=== PATIENT | female | born 1965 | race Caucasian/White ===

== ENCOUNTER → 2019-02-28 | Day surgery (SDC) | payer OTHER ==
[~2019-02-28] MED LIST: CRESTOR10 MG PO; DIOVAN HCT PO; FENTANYL CITRATE/PF 100MCG/2 ML INJ ONE; HYOSCYAMINE 0.125 MG TAB ONE; MIDAZOLAM HCL 2 MG/2 ML VIAL ONE; MIRAPEX PO; PHENYLEPHRINE HCL 1% 10 MG/ML VIAL ONE; PROPOFOL IV EMULSION 10 MG/ML 50 ML VIAL ONE; SYNTHROID100 MCG PO; VASOPRESSIN INJ 20 UNIT/ML VIAL ONE
--- OUTSIDE RECORDS SUMMARY | 2019-02-28 08:31 | XMS REPORT ---
Author Author [facility] Address Unknown Phone Unavailable Care Team Providers Care Camp Coordinator Name Role Phone VALARIE OGLESBY Unavailable Unavailable Problems This patient has no known problems. Allergies, Adverse Reactions, Alerts This patient has no known allergies or adverse reactions. Medications This patient has no known medications. Results Test Description Test Time Test Comments Text Results Atomic Results Result Comments HEPTOBILIARY W PHARM [place] [address] Patient Name: TRACY PURDY MR #: [id number] : 1965 Age/Sex: 52/F Req #: [id number] Adm Physician: Ordered by: VALARIE OGLESBY MD Report #: [id number] Location: [place] Room/Bed: Procedure: [id number] SD/HEPTOBILIARY W PHARM Exam Date: Exam Time: REPORT STATUS: Signed Hepatobiliary Scan with Gallbladder Ejection Fraction Clinical information: 52F with progressively worsening chronic abdominal pain Technique: Following intravenous administration of 6.4 millicuries of Tc-99m mebrofenin, dynamic images of the abdomen in the anterior projection were obtained through 30 minutes. Sincalide (CCK analog) 2.0 micrograms was administered intravenously over 30 minutes with additional imaging for determination of gallbladder ejection fraction. Discussion: Perfusion of the liver is normal. Extraction of tracer by the liver parenchyma is normal. Tracer appears promptly within the biliary tract. The gallbladder begins to fill by 9 minutes post injection of tracer and fills adequately. Tracer is seen in the small bowel by 5 minutes. The gallbladder ejection fraction with sincalide is 3% (normal greater than 40%). Impression: 1. Filling of the gallbladder excludes acute cystic duct obstruction/acute cholecystitis. 2. The decreased gallbladder ejection fraction of 3% supports the clinical diagnosis of chronic cholecystitis/gallbladder dyskinesia. Signed by: Dr. Breanna Andres M.D. on 04/04/2017 3:11 PM Dictated By: BREANNA ANDRES MD [id number] Transcribed By: JIM on 04/04/17 1511 COPY TO: VALARIE OGLESBY MD
[2019-02-28 12:55] VITALS: BP 137/61
--- NOTE | 2019-02-28 14:03 | Operative Report ---
DATE OF PROCEDURE: 02/28/2019 SURGEON: Jeison Sinha MD PROCEDURES: Esophagogastroduodenoscopy with biopsies and colonoscopy with polypectomy and biopsies. INDICATIONS FOR EGD: Dyspepsia. INDICATIONS FOR COLONOSCOPY: Surveillance colonoscopy, personal history of colon polyps. MEDICATIONS: The patient was done under MAC, please see anesthesiologist's note. PROCEDURE IN DETAIL: With the patient in left lateral decubitus position, flexible fiberoptic Olympus gastroscope was introduced into the esophagus under direct visualization without any difficulty. There was some patchy erythema noted in distal esophagus. The scope was then advanced with ease into the stomach. Mucosa overlying the antrum and the body revealed some patchy intense erythema and [id number] edema and biopsies were obtained and sent to stain for H pylori. There was an ulcerated nodule noted in the antrum that was biopsied. The pylorus was of normal contour and shape, it was intubated with ease and the scope was advanced all the way to the second portion of the duodenum. Biopsies were obtained from the second portion as well as the duodenal bulb to rule out sprue. The scope was then withdrawn back into the stomach and retroflexed. A minute polyp was noted in the fundus that was removed per the cold biopsy forceps. The scope was then straightened out it was subsequently withdrawn patient tolerated procedure well. IMPRESSION: 1. Mild distal esophagitis. 2. Gastritis, biopsied. Biopsies sent to stain for Helicobacter pylori. 3. Ulcerated nodule, antrum biopsied. 4. Fundal polyp, partially excised with the cold biopsy forceps. 5. Rule out sprue. PLAN: Follow up histology. Initiate Protonix 40 mg one p.o. q.a.m. a.c. PROCEDURE IN DETAIL: The patient was then turned around after adequate lubrication of the anal canal, flexible fiberoptic Olympus colonoscope was inserted into the rectum with ease and advanced all the way to the cecum. One polyp was snared from the cecal pouch and polypectomy site was hemoclipped. The scope was then withdrawn slowly. Mucosa overlying the ascending colon, transverse colon, and descending colon appeared to be within normal limits. A focal raised area was noted in the distal sigmoid colon and that was biopsied. Five polyps were removed per the hot biopsy forceps from the rectum. The scope was then retroflexed into the distal rectum. Small internal hemorrhoids were noted, none of which was actively bleeding. The scope was then straightened out, it was subsequently withdrawn. The patient tolerated the procedure well. IMPRESSION: 1. Cecal polyp snared, site hemoclipped. 2. Distal sigmoid colon, focal raised area, biopsied. 3. Rectal polyps x5, hot biopsied. 4. Internal hemorrhoids, none actively bleeding. PLAN: Followup histology. Initiate high-fiber, low-fat diet. Initiate high-fiber supplement. The patient might benefit from a followup colonoscopy in 3 to 5 years. Jeison Sinha MD [facility] [place] /[id number] cc: Eleuterio Cervantes DO
== END | disposition home or self-care (01) ==
LOC: OR 08:29
PROVIDERS: ATTEND Internal Medicine Gastroenterology
DX: K29.70 Gastritis, unspecified, without bleeding (principal); D12.0 Benign neoplasm of cecum; K31.7 Polyp of stomach and duodenum; K62.1 Rectal polyp; K25.9 Gastric ulcer, unspecified as acute or chronic, without hemorrhage or perforation; K63.89 Other specified diseases of intestine; K20.9 Esophagitis, unspecified; K64.8 Other hemorrhoids; D72.820 Lymphocytosis (symptomatic); E03.9 Hypothyroidism, unspecified; I10 Essential (primary) hypertension; E78.5 Hyperlipidemia, unspecified; Z01.810 Encounter for preprocedural cardiovascular examination; Z68.39 Body mass index [BMI] 39.0-39.9, adult
CPT/HCPCS: 43239; 45380; 45384; 45385; 93005; J2250; J2370; J2704; J3010

== ENCOUNTER → 2019-04-19 | Outpatient (CLI) | payer OTHER ==
[~2019-04-19] MED LIST changes: -FENTANYL CITRATE/PF 100MCG/2 ML INJ ONE; -HYOSCYAMINE 0.125 MG TAB ONE; -MIDAZOLAM HCL 2 MG/2 ML VIAL ONE; -PHENYLEPHRINE HCL 1% 10 MG/ML VIAL ONE; -PROPOFOL IV EMULSION 10 MG/ML 50 ML VIAL ONE; -VASOPRESSIN INJ 20 UNIT/ML VIAL ONE
--- NOTE | 2019-04-19 14:37 | Diagnostic Imaging Report ---
Hepatobiliary Scan with Gallbladder Ejection Fraction Clinical information: RUQ abdominal pain Technique: Following intravenous administration of 6.6 millicuries of Tc-99m mebrofenin, dynamic images of the abdomen in the anterior projection were obtained through 26 minutes. Sincalide (CCK analog) 2.0 micrograms was administered intravenously over 30 minutes with additional imaging for determination of gallbladder ejection fraction. Discussion: Perfusion of the liver is normal. Extraction of tracer by the liver parenchyma is normal. Tracer appears promptly within the biliary tract. The gallbladder begins to fill at 16 minutes post injection of tracer and fills adequately. Tracer is seen in the small bowel by 8 minutes. There is no contractile response by the gallbladder to the pharmacologic dose of sincalide. No emptying of the gallbladder occurs during the 30 minute infusion. Impression: 1. Filling of the gallbladder excludes acute cystic duct obstruction/acute cholecystitis. 2. The gallbladder ejection fraction is undefined as there is no emptying of the gallbladder during the infusion of sincalide. This absence of a contractile response to sincalide supports the clinical diagnosis of chronic cholecystitis/gallbladder dyskinesia. Signed by: Dr. Frannie Jorgensen M.D. on 04/19/2019 2:34 PM
== END ==
LOC: NM 08:11
PROVIDERS: ATTEND Internal Medicine Gastroenterology
DX: R10.11 Right upper quadrant pain (principal)
CPT/HCPCS: 78227; A9537

== ENCOUNTER → 2019-05-10 | Outpatient (CLI) | payer OTHER ==
[~2019-05-10] MED LIST changes: +DIATRIZOATE MEGL/DIATRIZOA SOD 30 ML BTL PO ONE; +IOPAMIDOL 370 MG/ML 200 ML INFUS..BTL INJ ONE; +KEFLEX500 MG PO; +POTASSIUM CHLO10 ME1 PO; +SODIUM CHLORIDE 0.9% 50ML 50 ML ONE; +TYLENOL WITH C1 EACH PO
--- NOTE | 2019-05-10 11:16 | Diagnostic Imaging Report ---
Chest, 2 views, 05/10/2019. History: Preop, cholecystectomy. Comparison: None available. Findings: The cardiomediastinal silhouette and pulmonary vasculature are within normal limits. The lungs are clear without evidence of consolidation or pleural effusion. Mild degenerative changes are present within the thoracic spine. There are no acute osseous or soft tissue abnormalities. Impression: No acute cardiopulmonary abnormality. Signed by: Omar Henley on 05/10/2019 11:13 AM
[2019-05-10 11:55] LABS: ALANINE AMINOTRANSFERASE 116 IU/L (0-55); ALBUMIN 3.6 g/dL (3.5-5.0); ALBUMIN/GLOBULIN RATIO 0.8 (0.8-2.0); ALKALINE PHOSPHATASE 150 IU/L (40-150); ANION GAP 12.3 mmol/L (8-16); BLOOD UREA NITROGEN 10 mg/dL (7-26); BUN/CREATININE RATIO 12 (6-25); CALCIUM 9.8 mg/dL (8.4-10.2); CARBON DIOXIDE 28 mmol/L (22-29); CHLORIDE 97 mmol/L (98-107); CREATININE, SERUM 0.84 mg/dL (0.57-1.11); EST GLOMERULAR FILTRATION RATE > 60 ML/MIN (60-); GLUCOSE 138 mg/dL (74-118); POTASSIUM 3.3 mmol/L (3.5-5.1); SODIUM 134 mmol/L (136-145)
[2019-05-10 12:04] LABS: BILIRUBIN,URINE NEGATIVE (NEGATIVE); CLARITY,URINE CLOUDY (CLEAR); COLOR,URINE YELLOW (YELLOW); KETONES,URINE NEGATIVE (NEGATIVE); LEUKOCYTE ESTERASE ,URINE SMALL (NEGATIVE); NITRITE,URINE NEGATIVE (NEGATIVE); PROTEIN,URINE DIPSTICK TRACE (NEGATIVE); URINE UROBILINOGEN 0.2 mg/dL (0.2 - 1)
[2019-05-10 12:18] LABS: BACTERIA,URINE RARE /HPF; EPITHELIAL CELLS,URINE FEW /LPF; RBC,URINE 0-5 /HPF (0-5); WBC,URINE (MAN) 0-5 /HPF (0-5)
--- NOTE | 2019-05-10 13:54 | Diagnostic Imaging Report ---
CT of the abdomen and pelvis, with contrast, 05/10/2019. History: Biliary dyskinesia. Comparison: None available. Technique: Multidetector CT scanning of the abdomen and pelvis was performed from the level of the lung bases to the inferior pubic rami after intravenous and oral administration of contrast. Coronal and sagittal multiplanar reformations were obtained. RADIATION DOSE: Total DLP: 796 mGy*cm Dose modulation, iterative reconstruction, and/or weight based adjustment of the mA/kV was utilized to reduce the radiation dose to as low as reasonably achievable. Discussion: LUNG BASES: There is right basilar atelectasis. ABDOMEN: There is no evidence of cholelithiasis or gallbladder wall thickening. The gallbladder measures 4.6 cm in diameter. Calcified granuloma are present within the liver and spleen. The biliary tree, pancreas, adrenal glands, and kidneys are normal. The hepatic vein, portal vein, and splenic vein are patent. The abdominal aorta is within normal limits for size. The stomach, small bowel, and large bowel are unremarkable. A 7 mm calcification is present at the base of the appendix, but the remainder of the appendix opacifies with contrast and is normal in size without adjacent inflammation. There is no evidence of adenopathy or free fluid. PELVIS: The bladder, uterus, and adnexa are normal in appearance. There is no evidence of free fluid or adenopathy. BONES AND SOFT TISSUES: Mild degenerative changes are present throughout the lumbar spine without evidence of lytic or sclerotic lesion. IMPRESSION: 1. Findings of previous granulomatous disease within the liver and spleen. 2. No evidence of cholelithiasis or gallbladder wall thickening. 3. Small calcification of the base of the appendix, but no evidence of appendicitis. Signed by: Omar Henley on 05/10/2019 1:50 PM
[2019-05-15 11:13] LABS: BASOPHILS # (AUTO) 0.1 (0.0-0.1); BASOPHILS % 1.2 % (0.0-1.0); EOSINOPHILS # (AUTO) 0.6 (0.0-0.4); EOSINOPHILS % 5.8 % (0.0-6.0); HEMATOCRIT 40.2 % (34.2-44.1); HEMOGLOBIN 12.3 g/dL (12.0-16.0); LYMPHOCYTES # (AUTO) 2.9 (1.0-3.2); LYMPHOCYTES % 30.1 % (18.0-39.1); MEAN CORPUSCULAR HEMOGLOBIN 26.7 pg (28-32); MEAN CORPUSCULAR HGB CONC 30.6 g/dL (31-35); MEAN CORPUSCULAR VOLUME 87.2 fL (81-99); MONOCYTES # (AUTO) 0.6 (0.2-0.8); MONOCYTES % 6.1 % (4.4-11.3); NEUTROPHILS # (AUTO) 5.3 (2.1-6.9); NEUTROPHILS % 56.3 % (38.7-80.0); PLATELET COUNT 228 x10e3/uL (140-360); RED BLOOD COUNT 4.61 x10e6/uL (3.6-5.1); RED CELL DISTRIBUTION WIDTH 14.2 % (11.7-14.4)
== END ==
LOC: CT 10:37
PROVIDERS: ATTEND Surgery
DX: K82.8 Other specified diseases of gallbladder (principal)
CPT/HCPCS: 36415; 71046; 74177; 80053; 81001; 93005; Q9967; 85025

== ENCOUNTER 2019-05-17 07:07 | Inpatient (IN) | payer OTHER ==
[~2019-05-17] VITALS: Ht 157.5 cm; Wt 102.5 kg
[~2019-05-17 07:07] MED LIST changes: +BUPIVACAINE 0.25%/EPI 30ML SDV INJ ONE; -DIATRIZOATE MEGL/DIATRIZOA SOD 30 ML BTL PO ONE; -IOPAMIDOL 370 MG/ML 200 ML INFUS..BTL INJ ONE; -KEFLEX500 MG PO; -SODIUM CHLORIDE 0.9% 50ML 50 ML ONE; -TYLENOL WITH C1 EACH PO
[2019-05-17] MEDS ORDERED: SUGAMMADEX SODIUM 200 MG/2 ML VIAL IV ONE (12:24)
[2019-05-17] MEDS: SODIUM CHLORIDE 0.9% 1000ML 1,000 ML IV SCH ×2 (12:35→20:35)
[2019-05-17] MEDS: PANTOPRAZOLE 40 MG 10ML VIAL IV SCH (12:45)
[2019-05-17] MEDS ORDERED: PROMETHAZINE HCL (IM) 25 MG/ML VIAL IV PRN (12:45)
[2019-05-17] MEDS ORDERED: HYDROMORPHONE 2MG/ML 2 MG/ML ML ONE (12:48)
[2019-05-17] MEDS ORDERED: METOCLOPRAMIDE HCL 10 MG/2ML VIAL ONE (13:23)
[2019-05-17 14:00] VITALS: BP 108/62
[2019-05-17 14:05] LABS: HEMATOCRIT 36.8 % (34.2-44.1); HEMOGLOBIN 11.4 g/dL (12.0-16.0)
[2019-05-17 14:16] LABS: INR 1.1; PROTHROMBIN TIME 14.7 seconds (11.9-14.5)
[2019-05-17 14:17] LABS: PARTIAL THROMBOPLASTIN TIME 31.3 seconds (23.8-35.5)
--- NOTE | 2019-05-17 14:26 | Operative Report ---
DATE OF PROCEDURE: 05/17/2019 SURGEON: Rashad Elmore MD PREOPERATIVE DIAGNOSES: 1. Chronic acalculous cholecystitis. 2. Biliary dyskinesia. 3. Morbid obesity. 4. Fatty liver infiltration. POSTOPERATIVE DIAGNOSES: 1. Chronic acalculous cholecystitis. 2. Biliary dyskinesia. 3. Morbid obesity. 4. Fatty liver infiltration. 5. Possible cirrhosis of the liver. PROCEDURE PERFORMED: Laparoscopic cholecystectomy with liver biopsy. ANESTHESIA: General. ESTIMATED BLOOD LOSS: Minimal. DRAINS: None. COMPLICATIONS: None. INDICATION AND FINDINGS: A 54-year-old morbidly obese female admitted for cholecystectomy because of right upper quadrant pain, persistent. She underwent a GI workup by Dr. Jeison Sinha and no source of pain was found. She had an EGD. She had an ultrasound that revealed no evidence of gallstones, normal ductal anatomy. CT scan revealed no source of her pain, some chronic granulomatous disease of the liver. In addition to that, she underwent a HIDA scan that revealed a severe ejection fraction. Her liver chemistries showed minimal elevation of the transaminases. INTRAOPERATIVE FINDINGS: Grossly normal looking gallbladder . There was no ductal dilatation. The liver was grossly abnormal with nodularity and fatty liver infiltration, consistent with severe hepatic steatosis and possibly cirrhotic degeneration. Hepatomegaly with thickened and heavy stiff liver. DESCRIPTION OF PROCEDURE: With the patient lying on the operative table in the supine position after administration of general anesthesia, she was prepped and draped for laparoscopic cholecystectomy. Because of her large size, we had to insufflate and started pneumoperitoneum in the right upper quadrant midclavicular line, after which we inflated the pneumoperitoneum to 15 mm of pressure. We placed a 5 mm trocar there and then placed a 10/11 trocar in the umbilical site. We placed a 10 mm subxiphoid port also and then a right anterior axillary line trocar was also placed. Finally, we had to place a left upper quadrant 5 mm trocar in order to expose the operative field because of the large size of her liver with heavy and stiff liver. We went ahead and then exposed the hepatorenal ligament by traction on the gallbladder fundus and the neck, and then in the stomach and colon with extra trocar site and we had to decompress the gallbladder because it was tense with bile and then exposed until we were able to identify the cystic duct. We also identified the common bile duct and the cystic artery and part of the liver bed fossa. At that point, we went ahead and then transected the cystic duct between titanium clips and also the cystic artery and then we took the gallbladder slowly and meticulous from the gallbladder bed fossa. The dissection was tedious because of the stiffness and the large size of the liver, but we were able to complete the procedure. After we did that, we removed the gallbladder through the umbilical port. We irrigated the right upper quadrant and the gallbladder bed fossa and then we saw there was some oozing coming from the gallbladder bed. We cauterized that and then we had some brisk venous bleeding coming from the gallbladder bed fossa and then we had to stop the bleeding by putting multiple Surgicels and putting pressure on the gallbladder bed fossa until the bleeding was stopped. We took at least minimum of 45 minutes if not longer to control the bleeding, but we were able to control it with pressure and then electrocautery. Once we were satisfied that the gallbladder bed fossa was no longer bleeding after observing the patient for several minutes, after we had released all the tension, then we suctioned out the blood, placed a 10 mm flat Salazar-Abdullahi drain in the right upper quadrant and foramen of Maria Elena and brought out through the right anterior axillary line trocar and secured there with 2-0 silk, connected to self suction, and then we closed the umbilical site trocar with 0 Vicryl and the subcutaneous tissue was closed in that location with 3-0 Vicryl. The subxiphoid and the skin of all the ports were closed using eunice. 0.25% Marcaine with epinephrine was given as local block at the end of the case. The patient's was informed of the intraoperative findings and the patient will be admitted to the hospital to [facility] for careful monitoring. She had been typed and cross-matched and will be followed up carefully. MD IGNACIA Duggan/[place] /[id number]
[2019-05-17 14:58] VITALS: BP 108/62
[2019-05-17] MEDS ORDERED: PROMETHAZINE 12.5MG/ NACL 0.9% 50 ML IV PRN (15:00)
[2019-05-17] MEDS: PRAMIPEXOLE DIHYDROCHLORIDE 0.25 MG TAB PO SCH ×2 (17:40→20:35)
[2019-05-17] MEDS: CEFOXITIN SOD 1 GM in SODIUM CHLORIDE 0.9% 50ML 50 ML IV SCH ×2 (17:40→23:30)
[2019-05-17] MEDS ORDERED: PHENYLEPHRINE HCL 1% 10 MG/ML VIAL ONE (17:53)
[2019-05-17] MEDS ORDERED: ONDANSETRON HCL INJ 2MG/ML 2ML 2 MG/ML VIAL ONE (17:53)
[2019-05-17] MEDS ORDERED: ROCURONIUM BROMIDE 10 MG/ML 5ML VIAL ONE (17:53)
[2019-05-17] MEDS ORDERED: DEXAMETHASONE SOD PHOS INJ 4 MG/ML VIAL ONE (17:53)
[2019-05-17] MEDS ORDERED: CEFOXITIN SOD 1 GM VIAL ONE (17:53)
[2019-05-17] MEDS ORDERED: PROPOFOL IV EMULSION 10 MG/ML 20 ML VIAL ONE (17:53)
[2019-05-17] MEDS ORDERED: SEVOFLURANE INHAL SOLN 250 ML PEN BTL ONE (17:53)
[2019-05-17] MEDS ORDERED: LIDOCAINE HCL 2% LOCAL INJ 5 ML SDV VIAL INJ ONE (17:53)
[2019-05-17] MEDS ORDERED: CEFOXITIN 1GM/ D5W 50ML 50 ML IV SCH (18:00)
[2019-05-17] MEDS ORDERED: FENTANYL CITRATE/PF 100MCG/2 ML INJ ONE (18:15)
[2019-05-17] MEDS ORDERED: MIDAZOLAM HCL 2 MG/2 ML VIAL ONE (18:15)
[2019-05-17] MEDS: HYDROMORPHONE 1MG/1ML INJ IV PRN (19:13)
[2019-05-17] MEDS: ONDANSETRON HCL INJ 2MG/ML 2ML 2 MG/ML VIAL IV PRN (19:14)
[2019-05-17 19:30] VITALS: BP 112/76
[2019-05-17 20:29] LABS: HEMATOCRIT 34.5 % (34.2-44.1); HEMOGLOBIN 10.9 g/dL (12.0-16.0)
[2019-05-17 21:00] VITALS: BP 112/76
[2019-05-17 23:31] VITALS: BP 90/57
[2019-05-18] VITALS (8 sets, daily range): BP systolic 92–129; BP diastolic 61–79
[2019-05-18] MEDS: ONDANSETRON HCL INJ 2MG/ML 2ML 2 MG/ML VIAL IV PRN ×4 (00:49→19:12)
[2019-05-18] MEDS: HYDROMORPHONE 1MG/1ML INJ IV PRN ×4 (00:49→19:12)
--- NOTE | 2019-05-18 01:23 | NUR ---
Dressing changed on right site JUNE drain. Will continue o monitor.
[2019-05-18] MEDS: LEVOTHYROXINE SODIUM 100 MCG TAB PO SCH (05:41)
[2019-05-18] MEDS: SODIUM CHLORIDE 0.9% 1000ML 1,000 ML IV SCH ×3 (05:41→23:11)
[2019-05-18 05:42] LABS: BASOPHILS # (AUTO) 0.1 (0.0-0.1); BASOPHILS % 0.5 % (0.0-1.0); EOSINOPHILS % 0.3 % (0.0-6.0); HEMOGLOBIN 10.5 g/dL (12.0-16.0); LYMPHOCYTES # (AUTO) 2.8 (1.0-3.2); LYMPHOCYTES % 19.7 % (18.0-39.1); MEAN CORPUSCULAR HEMOGLOBIN 27.1 pg (28-32); MEAN CORPUSCULAR HGB CONC 29.2 g/dL (31-35); MONOCYTES % 6.8 % (4.4-11.3); NEUTROPHILS # (AUTO) 10.2 (2.1-6.9); NEUTROPHILS % 72.1 % (38.7-80.0); PLATELET COUNT 169 x10e3/uL (140-360); RED BLOOD COUNT 3.87 x10e6/uL (3.6-5.1); RED CELL DISTRIBUTION WIDTH 14.5 % (11.7-14.4)
[2019-05-18 05:58] LABS: ALANINE AMINOTRANSFERASE 114 IU/L (0-55); ALBUMIN 2.8 g/dL (3.5-5.0); ALBUMIN/GLOBULIN RATIO 0.8 (0.8-2.0); ALKALINE PHOSPHATASE 86 IU/L (40-150); ANION GAP 15.2 mmol/L (8-16); BLOOD UREA NITROGEN 10 mg/dL (7-26); BUN/CREATININE RATIO 14 (6-25); CALCIUM 8.6 mg/dL (8.4-10.2); CARBON DIOXIDE 20 mmol/L (22-29); CHLORIDE 107 mmol/L (98-107); CREATININE, SERUM 0.73 mg/dL (0.57-1.11); EST GLOMERULAR FILTRATION RATE > 60 ML/MIN (60-); GLUCOSE 105 mg/dL (74-118); POTASSIUM 4.2 mmol/L (3.5-5.1); SODIUM 138 mmol/L (136-145)
--- NOTE | 2019-05-18 06:45 | NUR ---
Report given to oncoming SOFIA Tim.
[2019-05-18] MEDS: PRAMIPEXOLE DIHYDROCHLORIDE 0.25 MG TAB PO SCH ×4 (08:33→21:04)
[2019-05-18 11:48] LABS: HEMATOCRIT 35.7 % (34.2-44.1); HEMOGLOBIN 10.9 g/dL (12.0-16.0)
[2019-05-18] MEDS: PANTOPRAZOLE 40 MG 10ML VIAL IV SCH (13:28)
[2019-05-18] MEDS ORDERED: SIMVASTATIN 20 MG TAB PO SCH (21:00)
[2019-05-18] MEDS: HYDROCODONE/APAP 7.5MG-325MG 1 EA TAB PO PRN (23:10)
[2019-05-19 04:02] VITALS: BP 118/68
[2019-05-19] MEDS: HYDROCODONE/APAP 7.5MG-325MG 1 EA TAB PO PRN (05:56)
[2019-05-19] MEDS: LEVOTHYROXINE SODIUM 100 MCG TAB PO SCH (05:56)
--- NOTE | 2019-05-19 06:54 | NUR ---
Report given to oncoming nurse Glenroy this time.
[2019-05-19 07:48] VITALS: BP 120/77
[2019-05-19 07:49] VITALS: BP 120/77
[2019-05-19] MEDS: PRAMIPEXOLE DIHYDROCHLORIDE 0.25 MG TAB PO SCH ×2 (08:55→13:19)
[2019-05-19 09:47] LABS: BASOPHILS # (AUTO) 0.1 (0.0-0.1); BASOPHILS % 0.8 % (0.0-1.0); EOSINOPHILS # (AUTO) 0.2 (0.0-0.4); EOSINOPHILS % 2.3 % (0.0-6.0); HEMATOCRIT 32.8 % (34.2-44.1); HEMOGLOBIN 10.2 g/dL (12.0-16.0); LYMPHOCYTES # (AUTO) 2.3 (1.0-3.2); LYMPHOCYTES % 24.5 % (18.0-39.1); MEAN CORPUSCULAR HEMOGLOBIN 27.1 pg (28-32); MEAN CORPUSCULAR HGB CONC 31.1 g/dL (31-35); MONOCYTES # (AUTO) 0.6 (0.2-0.8); MONOCYTES % 5.9 % (4.4-11.3); NEUTROPHILS # (AUTO) 6.1 (2.1-6.9); NEUTROPHILS % 64.8 % (38.7-80.0); PLATELET COUNT 214 x10e3/uL (140-360); RED BLOOD COUNT 3.77 x10e6/uL (3.6-5.1); RED CELL DISTRIBUTION WIDTH 14.6 % (11.7-14.4)
[2019-05-19 12:00] VITALS: BP 117/41
[2019-05-19] MEDS: PANTOPRAZOLE 40 MG 10ML VIAL IV SCH (13:19)
[2019-05-19] MEDS ORDERED: TYLENOL WITH C1 EACH PO (16:13)
[2019-05-19] MEDS ORDERED: KEFLEX500 MG PO (16:14)
[2019-05-19 16:30] VITALS: BP 121/58
== END 2019-05-19 16:35 | disposition home or self-care (01) | DRG 418 ==
LOC: OR 07:07 → PACU V 12:38 → IMCU 14:33
PROVIDERS: ADMIT Surgery; ATTEND Surgery
PROC: 0FT44ZZ Resection of Gallbladder, Percutaneous Endoscopic Approach (ICD-10-PCS; principal; 2019-05-17 09:00)
DX: K81.1 Chronic cholecystitis (principal); Z68.41 Body mass index [BMI] 40.0-44.9, adult; K76.0 Fatty (change of) liver, not elsewhere classified; I10 Essential (primary) hypertension; E78.5 Hyperlipidemia, unspecified; E66.9 Obesity, unspecified; K21.9 Gastro-esophageal reflux disease without esophagitis
CPT/HCPCS: 36415; 80053; 85014; 85018; 85025; 85610; 85730; 86850; 86900; 88304; 88307; J0694; J1100; J1170; J2001; J2250; J2370; J2405; J2765; J3010; J7030

== ENCOUNTER → 2019-10-18 | Outpatient (CLI) | payer OTHER ==
[~2019-10-18] MED LIST changes: -BUPIVACAINE 0.25%/EPI 30ML SDV INJ ONE; +DIATRIZOATE MEGL/DIATRIZOA SOD 30 ML BTL PO ONE; +IOPAMIDOL 370 MG/ML 200 ML INFUS..BTL INJ ONE; +KEFLEX500 MG PO; +SODIUM CHLORIDE 0.9% 50ML 50 ML ONE; +TYLENOL WITH C1 EACH PO
[2019-10-18 10:29] LABS: BLOOD UREA NITROGEN 10 mg/dL (7-26); BUN/CREATININE RATIO 13 (6-25); CREATININE, SERUM 0.79 mg/dL (0.57-1.11); EST GLOMERULAR FILTRATION RATE > 60 ML/MIN (60-)
--- NOTE | 2019-10-18 13:16 | Diagnostic Imaging Report ---
Abdominal ultrasound. History: Right-sided abdominal pain. Comparison: CT abdomen 05/10/2019. Discussion: Transverse and longitudinal images of the abdomen were obtained demonstrating a liver of increased size but normal echogenicity measuring 18 cm in length. There is no focal hepatic abnormality. The portal vein is patent with hepatopetal flow and is within normal limits measuring 11 mm in diameter. The biliary tree is within normal limits with the common bile duct measuring 3 mm in diameter. The gallbladder is absent. The kidneys are normal in size and echogenicity bilaterally without evidence of hydronephrosis, stones, or mass. The right kidney measures 11 cm and the left kidney measures 11.1 cm in length. The spleen is normal in size and appearance measuring 12.3 cm in length. The pancreatic head and body are visualized and are normal in appearance. The abdominal aorta and IVC are within normal limits. There is no evidence of free fluid. IMPRESSION: 1. Mild hepatomegaly without focal hepatic abnormality. 2. Status post post cholecystectomy. Otherwise unremarkable abdominal ultrasound. Signed by: Omar Henley on 10/18/2019 1:14 PM
--- NOTE | 2019-10-18 15:35 | Diagnostic Imaging Report ---
CT of the abdomen and pelvis, with contrast, 10/18/2019. History: Right upper quadrant pain after cholecystectomy. Comparison: 05/10/2019. Technique: Multidetector CT scanning of the abdomen and pelvis was performed from the level of the lung bases to the inferior pubic rami after intravenous and oral administration of contrast. Coronal and sagittal multiplanar reformations were obtained. RADIATION DOSE: Total DLP: 762 mGy*cm Dose modulation, iterative reconstruction, and/or weight based adjustment of the mA/kV was utilized to reduce the radiation dose to as low as reasonably achievable. Discussion: LUNG BASES: There is right basilar atelectasis. ABDOMEN: Calcified granulomata are noted in the spleen. Cholecystectomy clips are present. A small amount of fluid and air are present in the gallbladder fossa measuring 1.5 x 2.5 cm. The liver, biliary tree, pancreas, adrenal glands, and kidneys are normal. The hepatic vein, portal vein, and splenic vein are patent. The abdominal aorta is within normal limits for size. The stomach, small bowel, and large bowel are unremarkable. The appendix is visualized and is normal. There is no evidence of free fluid. Single prominent portacaval lymph node is present measuring 1.8 cm in short axis diameter. A small fat-containing umbilical hernia is noted. PELVIS: The bladder, uterus, and adnexa are normal in appearance. There is no evidence of free fluid or adenopathy. BONES AND SOFT TISSUES: Degenerative changes are present throughout the lumbar spine without evidence of lytic or sclerotic lesion. IMPRESSION: Status post cholecystectomy with small amount of fluid and air present within the gallbladder fossa. Mildly enlarged portacaval lymph node is likely reactive. Signed by: Omar Henley on 10/18/2019 3:32 PM
== END ==
LOC: US 09:28
PROVIDERS: ATTEND Internal Medicine Gastroenterology
DX: R10.9 Unspecified abdominal pain (principal); K75.81 Nonalcoholic steatohepatitis (NASH)
CPT/HCPCS: 36415; 74177; 76700; 82565; 84520; Q9967

== ENCOUNTER → 2023-02-07 | Outpatient (CLI) | payer OTHER ==
[~2023-02-07] MED LIST changes: -DIATRIZOATE MEGL/DIATRIZOA SOD 30 ML BTL PO ONE; -IOPAMIDOL 370 MG/ML 200 ML INFUS..BTL INJ ONE; -SODIUM CHLORIDE 0.9% 50ML 50 ML ONE
== END ==
LOC: MAMMO 12:33
PROVIDERS: ATTEND Family Medicine
DX: Z12.31 Encounter for screening mammogram for malignant neoplasm of breast (principal); Z13.820 Encounter for screening for osteoporosis
CPT/HCPCS: 77067; 77080

== ENCOUNTER → 2023-02-13 | Outpatient (CLI) | payer OTHER | LOC: US 09:23 | PROVIDERS: ATTEND Family Medicine | DX: R74.8 Abnormal levels of other serum enzymes (principal); K76.0 Fatty (change of) liver, not elsewhere classified | CPT/HCPCS: 76705 ==

== ENCOUNTER → 2025-05-27 | Outpatient (REF) | payer OTHER | LOC: US 12:18 | PROVIDERS: ATTEND Family Medicine | DX: R22.31 Localized swelling, mass and lump, right upper limb (principal) | CPT/HCPCS: 76882 ==